=== PATIENT | female | born 1950 | race Caucasian/White ===

== ENCOUNTER 2024-02-12 12:39 | Outpatient (CLI) | payer MEDICARE, BC, SELFPAY | END 2024-02-12 12:40 | disposition home or self-care (01) | LOC: NFLDREF 12:41 | PROVIDERS: PCP Family Medicine; Visit Provider Obstetrics & Gynecology | DX: R33.9 Retention of urine, unspecified (principal); R82.90 Unspecified abnormal findings in urine | CPT/HCPCS: 87086 ==

== ENCOUNTER 2024-05-11 06:21 | Day surgery (SDC) | payer MEDICARE, BC, SELFPAY ==
[2024-05-11] VITALS (24 sets, daily range): BP systolic 112–150; BP diastolic 57–85; PULSE 56–72; RESP 12–20; TEMP 35.9–36.9; O2SAT 89–97; BMI 32.9
--- NOTE | 2024-05-11 06:40 | W.PM.H&PU ---
History & Physical Update History & Physical Update H&P Updates: Patient is here with her , Brian. Patient reports that the pessary she was sent home with fell out after BM. She decided not to come in for replacement when her true size came in as she was pursuing surgery anyway. Has been splinting to empty her bladder without issues. No other concerns or changes to her health status. We reviewed her operative consent in its entirety. She was consented for: Total vaginal hysterectomy, bilateral salpingectomy, Caldwell culdoplasty, anterior/posterior colporrhaphy, perineorrhaphy, cystoscopy, and all other indicated procedures, for the indication (s) of pelvic organ prolapse most significant the anterior compartment and apical compartment resulting in urinary retention. We discussed the risks, benefits, and alternatives including risk of converting to open procedure given her previous surgical history. Risks discussed include pain, bleeding, infection, and damages to the surround structures (the most likely being the bladder, hence need for cystoscopy). We discussed ways to address/minimize these risks. We discussed that after correcting the most significant anatomical defects (apical and anterior compartment), I will assess the need for posterior colporrhaphy and perineorrhaphy. I do anticipate she will need those procedures but the repair might not be as extensive as the anterior colporrhaphy. We discussed voiding trial and the possibility to going home with a Kelley cath as postoperative urinary retention can be common due to acute inflammation. If she fails her voiding trial tomorrow, she will return to clinic in a week to repeat it. She might have a vaginal packing in to help with hemostasis overnight. I will remove this in the AM. She has no signs of symptoms of IZABELLA. We discussed that returning the bladder to it its anatomical position can unmask IZABELLA. Will monitor for that and manage as needed. We discussed postoperative restriction. She is worried she won't remember them all. I reassured her that she will have written detailed instructions. Patient and were given opportunity to ask questions. All questions answered to the best of my abilities. Would like to proceed with planned surgery.
[2024-05-11 07:34] LABS: Hemoglobin* 13.2 gm/dL (12.0-16.0)
[2024-05-11] MEDS: LACTATED RINGERS 1000 ML 1,000 ML 100 ML IV ×2 (08:06→09:53)
[2024-05-11] MEDS: SODIUM CHLORIDE 0.9 % (FLUSH) 10 ML SYRINGE IVF (08:07)
[2024-05-11] MEDS: ACETAMINOPHEN 500 MG TABLET 1000 MG PO ×2 (08:09→19:59)
[2024-05-11] MEDS: GABAPENTIN 600 MG TABLET PO (08:10)
[2024-05-11 08:12] LABS: Creatinine* 0.7 mg/dL (0.5-1.5); Estimated Glomerular Filt Rate 91 ml/min
[2024-05-11] MEDS: CEFAZOLIN 2 GM INJ IVP ×2 (08:55→12:38)
[2024-05-11] MEDS: 0.9 % SODIUM CHLORIDE 50 ml INJECTION (09:38)
[2024-05-11] MEDS: LIDOCAINE 1%-EPI 1:100,000 20 ML INFILTRATI (09:38)
[2024-05-11] MEDS: ESTROGENS, CONJUGATED VAGINAL 0.625 MG/G CREAM 1 APPLIC VAGINAL (09:38)
[2024-05-11] MEDS: VASOPRESSIN 20 UNIT/ML INJ INJECTION (09:39)
--- NOTE | 2024-05-11 10:19 | P.ANES_ITS ---
Anesthesia Charges Start Date/Time Anesthesia Start Date: 05/11/24 Anesthesia Start Time: 08:43 Stop Date/Time Anesthesia Stop Date: 05/11/24 Anesthesia Stop Time: 13:00 Summary Extremes of Age - Over 70 or under 1: MDA Coding CPT Codes CPT Codes: ANESTH VAGINAL HYSTERECTOMY - 31923 ([id number]) P2 - PATIENT W/MILD SYST DISEASE, QK - ENTERPRISE INTEGRATION DEVELOPER 2-4 CNCRNT ANES PROC, QX - SLUDGE CONTROL OPERATOR SVC W/ MD MED DIRECTION Additional Codes: Summary - Extremes of Age - Over 70 or under 1: MDA ([id number])
--- NOTE | 2024-05-11 10:19 | W.ANESCHARGE ---
Anesthesia Charges Start Date/Time Anesthesia Start Date: 05/11/24 Anesthesia Start Time: 08:43 Stop Date/Time Anesthesia Stop Date: 05/11/24 Anesthesia Stop Time: 13:00 Summary Extremes of Age - Over 70 or under 1: MDA Coding CPT Codes CPT Codes: ANESTH VAGINAL HYSTERECTOMY - 84972 ([id number]) P2 - PATIENT W/MILD SYST DISEASE, QK - MEDICAL/SURGERY REGISTERED NURSE 2-4 CNCRNT ANES PROC, QX - TOOLS PROGRAMMER SVC W/ MD MED DIRECTION Additional Codes: Summary - Extremes of Age - Over 70 or under 1: MDA ([id number])
--- NOTE | 2024-05-11 12:58 | P.ANES_ITS ---
Anesthesia Charges Start Date/Time Anesthesia Start Date: 05/11/24 Anesthesia Start Time: 08:43 Stop Date/Time Anesthesia Stop Date: 05/11/24 Anesthesia Stop Time: 13:00 Summary Extremes of Age - Over 70 or under 1: ASSOCIATE DEAN OF WOMEN Coding CPT Codes CPT Codes: ANESTH VAGINAL HYSTERECTOMY - 69235 ([id number]) P2 - PATIENT W/MILD SYST DISEASE, QK - SPECIAL EDUCATION EDUCATIONAL ASSISTANT 2-4 CNCRNT ANES PROC, QX - ASSOCIATE DEAN OF WOMEN SVC W/ MD MED DIRECTION Additional Codes: Summary - Extremes of Age - Over 70 or under 1: ASSOCIATE DEAN OF WOMEN ([id number])
--- NOTE | 2024-05-11 12:58 | W.ANESCHARGE ---
Anesthesia Charges Start Date/Time Anesthesia Start Date: 05/11/24 Anesthesia Start Time: 08:43 Stop Date/Time Anesthesia Stop Date: 05/11/24 Anesthesia Stop Time: 13:00 Summary Extremes of Age - Over 70 or under 1: EYELET MACHINE OPERATOR Coding CPT Codes CPT Codes: ANESTH VAGINAL HYSTERECTOMY - 14837 ([id number]) P2 - PATIENT W/MILD SYST DISEASE, QK - HAND SCREEN PRINTER 2-4 CNCRNT ANES PROC, QX - EYELET MACHINE OPERATOR SVC W/ MD MED DIRECTION Additional Codes: Summary - Extremes of Age - Over 70 or under 1: EYELET MACHINE OPERATOR ([id number])
--- NOTE | 2024-05-11 13:22 | PM.GYNPRHY ---
Procedure Type of Hysterectomy: Vaginal Pre-op/Post-op diagnoses: Pre-Op/Post-Op Diagnoses Operation Date: 05/11/24 08:25 <No data on this case meets the specified criteria> Procedure: Procedures Operation Date: 05/11/24 08:25 Actual Procedure Side Surgeon p Total Vaginal Hysterectomy, Caldwell's Culdoplasty, Anterior colporrhaphy, Posterior colporrhaphy, multiple Cystoscopies Amaya Estevez MD Clerk Of Court: Trang Simms Estimated blood loss (mL): 50 Anesthesia Type: General Complications: none Fluids: crystalloid Fluid amount (mL): 1,700 Urine output (mL): 200 Weight of Uterus: 1.764 oz Specimen: uterus (uterus and cervix ) Disposition: floor Narrative: Preoperative diagnosis: Odilia 74-year-old 6 para 5 with Stage III anterior compartment, apical prolapse and stage II posterior compartment prolapse who desires surgical treatment. Postoperative diagnosis: Same Procedure: Total vaginal hysterectomy, anterior and posterior repair. Caldwell's culdoplasty Anesthesia: General endotracheal spinal, local Surgeon: Amaya Estevez MD bindery library technical assistant: Trang Simms MD EBL: 50 mL Drains: Kelley to gravity: Clear urine at the end of the procedure., Vaginal pack in place Specimen: Uterus with cervix to pathology Complications: None Findings: On exam under anesthesia: Ureteral opening caruncle, Uterus is mid position, 4 week size. Prolapse: Grade III cystocele, grade III uterine prolapse, grade II rectocele primarily with in the vaginal canal. The perineal body is well supported. Moderate scarring at the vesicouterine reflection from previous delivery. Tubes and ovaries were normal. Procedure: Odilia was taken to the operating room where general anesthesia was found be adequate. She is placed in the dorsal lithotomy position with candy canes and an exam under anesthesia performed with the findings stated above. She was then prepped and draped in a sterile manner. A Kelley catheter was placed. A weighted speculum was placed in the posterior aspect of the vaginal introitus. The cervix was grasped with 2 single-toothed tenaculum and the cervix circumferentially injected 1% lidocaine with epinephrine. [dilute vasopressin, 20 units diluted in 50 mL of saline] A circumferential incision was made around the cervix with a scalpel. The anterior vaginal mucosa was grasped with an Allis clamp and the anterior cul-de-sac was attempted. There was moderate amount of scar tissue that made the appropriate plain hard to identified. Decision was made to make the posterior colpotomy first. The posterior cul-de-sac was entered sharply with Spann scissors and a long weighted speculum was placed. After the posterior cul-de-sac was entered, a finger was used to wrap around to the anterior uterus at the vesicouterine reflection. The peritoneum was grasped with toothed forceps and the peritoneum entered. This opening was extended with blunt pressure and a Crandon retractor placed through the opening. Pedicles of the hysterectomy were formed using Vaishnavi clamps. All pedicles were Vaishnavi transfixed. The 1st pedicle was formed on the patient's left incorporating the uterosacral ligament. This was divided and Gabrielle transfixed. These sutures were tagged with a small clamp. The right uterosacral ligament was grasped in the 1st right pedicle that pedicle was divided, Vaishnavi transfixed in the sutures held with a small Arianna clamp. Sequential pedicles were then formed using Gabrielle clamps, all pedicles were divided sharply and Vaishnavi transfixed. At the level of the cornea at the utero ovarian ligament ligament were cross-clamped with a Gabrielle clamp and divided. The cornual pedicles were doubly suture ligated: 1st with an 0 Vicryl free tie followed by an 0 Vicryl stick tie in a fore and aft manner. All pedicles were noted to be hemostatic. The peritoneum was identified posteriorlt and grasped with 2 Allis clamps.The peritoneum was closed using a 3-0 Vicryl in a purse-string manner. A Caldwell's culdoplasty was performed. Two internal Caldwell's stitches were placed with 2-0 PDS and one external Caldwell's stitch placed with 2-0 Vicryl. The long weighted speculum was removed and the short weighted speculum replaced in the vaginal introitus. Attention was turned to performing the anterior repair. Allis clamp was placed in the midline of the anterior vaginal mucosa approximately 1 cm under the urethral meatus. Two additional Allis clamps were placed 1 just superior to each apex of the vaginal cuff repair. 1% lidocaine with epinephrine was injected between the 2 Allis clamps just above the cuff and in the midline to the Allis that was placed below the urethral meatus. A horizontal incision was then made between the 2 Allis clamps just above the vaginal cuff. Is vaginal mucosa was undermined with the Metzenbaum scissors. The excess mucosa was grasped with a combination of Hartman and Allis clamps. The underlying fascial tissue was mobilized from the vaginal mucosa using an open Ray-Henrry sponge. Two 0 Vicryl interrupted sutures were used to grasp the lateral vaginal fascial tissue and tied together in the midline. The excess vaginal mucosa was then removed and the remaining vertical incision was re-approximated using 3-0 Vicryl in a running locked manner. Excellent hemostasis verified. 1st diagnostic cystoscopy was confirmed that showed intact urinary bladder with bilateral ureteral jets. The most distal to proximal Caldwell's stitches were tied down with diagnostic cystoscopy performed after every tie to confirm bilateral ureteral jets. The weighted speculum removed. The vaginal cuff was re-approximated using 0 Vicryl sutures in a figure of X manner. The uterosacral pedicles were incorporated into each apex of the vaginal cuff. Excellent hemostasis was noted. Attention was turned to performing the posterior repair. An Allis clamp was placed at the apex of the posterior repair in the midline of the vaginal mucosa posteriorly, 2 Allis clamps were placed in the posterior introitus approximately 1 cm within the introitus. 1% lidocaine with epinephrine was instilled between the 2 horizontal clamps and in the midline to the apical clamp. A horizontal incision was made between the 2 most proximal Allis clamps and a horizontal midline incision was made from the apex clamp to the midline horizontal incision. The vaginal mucosa was then undermined with Metzenbaum scissors and the vaginal fascia was mobilized from the mucosa using a Ray-Henrry sponge. The lateral vaginal fascia was then reapproximated using 2 0 Vicryl interrupted sutures. Excess bleeding noted from right corner and two figure of X placed. Rectal exam with assistance's digit used to provide traction to expose the right corner for the placement of the stitches. Stool expressed after removal of digit. There was contamination of the sterile field. This was cleaned and re-prepped/draped prior to continuing. John applied as well due to slow oozing. The excess mucosal tissue was removed and the remaining incision reapproximated using 3-0 Vicryl in a running locked manner. Hemostasis verified. Final cystoscopy was performed that showed intact urinary bladder with defect or suture. Bilateral ureteral jets. noted. Final digital rectal exam performed to verify intact rectum and no sutures noted. A vaginal pack with Premarin cream was placed in the vaginal canal to be removed tomorrow morning by the physician. Sponge, lap and instrument counts were correct x2 at the end of the procedure and the patient was taken to the recovery room in stable condition. Prior to the procedure the patient received: 2 g Ancef for antibiotic prophylaxis. 2 g of Ancef was redosed at the end of the procedure due to contamination of the sterile field.
[2024-05-11] MEDS: HYDROmorphone 0.5 mg/0.5 ml inj IVP (13:30)
[2024-05-11] MEDS: OXYCODONE 5 MG TABLET PO (17:15)
[2024-05-11] MEDS: PHENAZOPYRIDINE HCL 200 MG TABLET PO ×2 (17:16→22:22)
[2024-05-11] MEDS: PRAVASTATIN SODIUM 20 MG TABLET 40 MG PO (21:28)
[2024-05-12] MEDS: ACETAMINOPHEN 500 MG TABLET 1000 MG PO ×2 (02:05→08:03)
[2024-05-12 02:11] VITALS: PULSE 67; RESP 16; O2SAT 95
[2024-05-12 03:40] VITALS: O2SAT 98
[2024-05-12 03:43] VITALS: BP 130/70; PULSE 64; RESP 16; TEMP 36.8; O2SAT 94
[2024-05-12 05:10] VITALS: O2SAT 95
[2024-05-12 06:51] LABS: Hemoglobin* 12.1 gm/dL (12.0-16.0)
[2024-05-12 07:09] LABS: Creatinine* 0.7 mg/dL (0.5-1.5); Estimated Glomerular Filt Rate 91 ml/min
[2024-05-12 07:40] VITALS: BP 144/79; PULSE 59; RESP 20; TEMP 36.6; O2SAT 96
[2024-05-12] MEDS: SIMETHICONE 80 MG TAB.CHEW 160 MG PO (07:40)
[2024-05-12] MEDS: DOCUSATE SODIUM 100 MG CAPSULE PO (07:40)
--- NOTE | 2024-05-12 08:32 | PM.GYNDS1 ---
DS: Providers Provider Time Seen by Provider: 08:00 Date Seen: 05/12/24 Primary care physician: Roberta Crowder DO Attending Physician on discharge: Amaya Estevez MD Date of Discharge: 05/12/24 DS: Diagnosis Discharge Diagnosis (1) Cystocele: Status: Acute (2) Urinary retention: Status: Acute JEWEL OLIVING MACHINE OPERATOR-Discharge Summary Hospital Course Hospital Course Narrative: Patient is a 74 year old admitted on 05/11/24 for scheduled surgery. Surgeries: Total vaginal hysterectomy, Caldwell culdoplasty, anterior and posterior colporrhaphy, cystoscopy Indication for surgery: Pelvic organ prolapse (stage III apical and anterior prolapse. Stage II posterior prolapse) Intraoperative findings: On exam under anesthesia: Ureteral opening caruncle, Uterus is mid position, 4 week size. Prolapse: Grade III cystocele, grade III uterine prolapse, grade II rectocele primarily with in the vaginal canal. The perineal body is well supported. Moderate scarring at the vesicouterine reflection from previous delivery. Tubes and ovaries were normal. Final cystoscopy was performed that showed intact urinary bladder with defect or suture. Bilateral ureteral jets noted. She had an uncomplicated surgery. Postoperative course has been uneventful. Vitals have been stable. She has remained afebrile. Today, on postoperative day 1, she reports the pain is well controlled. I removed her vaginal packing. She has been able to ambulate without difficulty. She is tolerating regular diet. She is passing flatus. Nixon catheter has been removed, and she passed her voiding trial by voiding 100% of total instilled volume (300 cc) Time Spent with Patient Time attestation: Total time spent providing and/or coordinating discharge services: Time spent: Less than 30 minutes JEWEL OLIVING MACHINE OPERATOR - Exam Physical Exam: Vital signs: Temp Pulse Resp BP Pulse Ox O2 Del Method O2 Flow Rate 97.9 F 59 L 20 144/79 H 96 Room Air 1 05/12/24 07:40 05/12/24 07:40 05/12/24 07:40 05/12/24 07:40 05/12/24 07:40 05/12/24 07:40 05/12/24 03:40 Narrative: Physical exam: General: No acute distress Psych: Alert and oriented x4, full affect HEENT: Normocephalic, atraumatic Heart: Regular rate and rhythm, no murmur rub or gallop Lungs: Clear to auscultation bilaterally Abdomen: Normoactive bowel sounds, soft, no tenderness, rebound, or guarding Incision(s): Vertical infraumbilical incision noted. Well healed. Skin: No lesions or rashes Lower extremities: No edema or erythema Pelvic exam: Scant vaginal bleeding JEWEL OLIVING MACHINE OPERATOR - DS: Data Data Completed and Pending Labs on day of discharge: Labs from last 24 hours 05/12/24 05/11/24 06:25 07:24 Hgb 12.1 Creatinine 0.7 Estimated Creat Clear 48.00 Estimated GFR 91 Blood Type A Positive Antibody Screen NEGATIVE Procedures Procedures: Procedures Operation Date: 05/11/24 08:25 Actual Procedure Side Surgeon p Total Vaginal Hysterectomy, Caldwell's Culdoplasty, Anterior colporrhaphy Posterior colporrhapy, multiple Cystoscopies Amaya Estevez MD Complications: none Discharge Plan Discharge Disposition: Home w/ Parent or Adult Discharging Surgeon: Amaya Estevez Follow-Up Appointment: 05/26/24 at 0830 and 07/19/24 at 0830 Prescriptions: New acetaminophen 500 mg Tablet 1,000 mg PO Q6H PRN30 Days Qty: 60 0RF docusate sodium 100 mg Capsule 100 mg PO BID PRN (Reason: Constipation) 30 Days Qty: 30 0RF simethicone 80 mg Tablet,Chewable 160 mg PO Q4H PRN (Reason: gas) 30 Days Qty: 30 0RF oxycodone 5 mg Tablet 5 mg PO Q6H PRN (Reason: Moderate Pain) 14 Days Qty: 10 0RF Continued pravastatin 40 mg tablet 40 mg PO QHS capsaicin 0.075 % cream 1 applic topical QHS PRN Rx Instructions: do not wash area for at least 30 min after application Patient Instructions: Vaginal Hysterectomy (DC) Additional Instructions: POSTOPERATIVE INSTRUCTIONS ACTIVITY Walking is encouraged, even if it is just short distances. Try to walk up to 6 times during the day. You may climb stairs as tolerated, but not for exercise. If you have a lengthy trip home after surgery, for 5 minutes or so every hour. To not participate strenuous activities, such as aerobic exercise. No heavy lifting/pushing/pulling for 4-6 weeks. Do not lift anything more than about 15 lbs (such as laundry, groceries, children, pets), vacuum, push heavy doors or grocery carts, etc. Do not put anything in the vagina for 6-8 weeks after surgery unless otherwise instructed by your doctor (including tampons, douching, sexual intercourse, etc). No driving for about 2 weeks after surgery, while you are taking narcotic pain medication, or until you feel that you are ready. Practice checking your blind spot and stepping hard on the brake. Avoid sitting or lying in bed for more than 2 hours at a time while you are awake to reduce your risk of blood clots. You may return to work when directed by your physician. Please contact your doctor if you need any return to work letters or medical leave paperwork to be completed. WOUND CARE You have no incision that you can see but the incision are intravaginal. Shower daily after surgery. No tub baths until wound is completely healed (6-8 weeks). Wash your hands frequently, especially before touching your incision, changing any dressings, after using the restroom, and before eating. Avoid wearing tight clothing. Readable, loose clothing is more comfortable. Do not use hot tub, whirlpool or go swimming unless otherwise instructed by your health care provider. PAIN MANAGEMENT Take your oral pain medication as needed. You should be taking Ibuprofen 600mg every 6 hours with 1000 mg of Tylenol every 6 hours. You can take these together every six hours or alternate them every 3 hours. You should then take the oxycodone as needed if you have breakthrough pain on top of the Tylenol and Ibuprofen. Some pain medications can cause constipation so you should take a stool softener (i.e. colace/senna) while you are on these medications. You may also take milk of magnesia or Miralax for constipation. AP take narcotic medications for pain, do not: Direct Care Specialist operate motorized vehicles/equipment, drink alcoholic beverages, make important decision or sign legal documents. WHAT TO EXPECT AT HOME Recovery from surgery is generally 2-4 weeks, but sometimes longer for more strenuous activity. It is normal to be very tired during this time. It is normal to have some drainage or a small amount of vaginal bleeding after surgery which may last up to 8 weeks. You may go home with a nixon catheter in your bladder. If so, you will need to follow up for a nurse visit in 7-10 days for removal. You will most likely experience gas pain, abdominal swelling, or shoulder pain for 24-72 hours after surgery. A warm shower, heating pad, and/or walking may help. WHEN TO CALL YOUR DOCTOR : Fever (>100.4?F or 38.0?C) or chills. Incision problems such as redness, warmth, swelling, or foul-smelling drainage. Severe nausea or persistent vomiting. Bright red vaginal bleeding (soaking >2 pad/hour) or foul-smelling vaginal drainage. Severe pain not relieved with pain medication. Pain and swelling in your legs, especially if it is only on one side and not the other. Pain with urination, cloudy urine, or foul-smelling urine. Or if you have any other problems or questions. CALL 911 OR GO TO THE EMERGENCY ROOM IF YOU HAVE: Any shortness of breath, difficulty breathing, or chest pain. Follow-up: Roberta Crowder DO [Primary Care Provider] - Discharge Orders: Discharge Order (Routine); Ordered 05/12/24 Ordered By: Amaya Estevez
[2024-05-12] MEDS: OXYCODONE 5 MG TABLET PO (09:04)
== END 2024-05-12 09:40 | disposition home or self-care (01) ==
LOC: OR 06:25 → OB 06:25
PROVIDERS: PCP Family Medicine; Visit Provider Obstetrics & Gynecology
PROC: 0TJB8ZZ Inspection of Bladder, Via Natural or Artificial Opening Endoscopic (ICD-10-PCS; CPT 57260; principal; 2024-05-11 08:15)
DX: N81.3 Complete uterovaginal prolapse (principal); R33.9 Retention of urine, unspecified
CPT/HCPCS: 58270; 57260; 00944; 36415; 82565; 85018; 86850; 86900; 86901; 94761; 99100; A4314; A9270; J0330; J0690; J1100; J1171; J2405; J2710; J3010; J3490; J7120